=== PATIENT | male | born 1975 | race Caucasian/White ===

== ENCOUNTER 2016-10-31 18:36 | Emergency (ER) | payer OTHER ==
[~2016-10-31] VITALS: Ht 185.4 cm; Wt 90.7 kg
[~2016-10-31 18:36] MED LIST: CHILDREN'S ASPI81 M1 PO; DEPAKOTE ER500 MG PO; FLOMAX0.4 MG PO; KEPPRA 500 MG500 M1 PO; LYRICA 75 MG CA75 MG PO; PROZAC 10 MG CA10 MG PO; PROZAC 20 MG20 MG PO; REMERON15 MG PO; SEROQUEL 50 MG50 MG PO
[2016-10-31] MEDS ORDERED: CONSTULOSE10 GM/15 M PO (20:08)
[2016-10-31] MEDS ORDERED: DEPAKOTE SPRIN125 MG PO (20:08)
[2016-10-31] MEDS ORDERED: HALOPERIDO50 MG/1 M1 IM (20:09)
[2016-10-31] MEDS ORDERED: SEROQUEL200 MG PO (20:10)
[2016-10-31] MEDS ORDERED: ZYPREXA2.5 MG PO (20:11)
[2016-10-31] MEDS ORDERED: SEROQUEL 25 MG25 M1 PO (20:11)
[2016-10-31] MEDS ORDERED: HALOPERIDOL 2 MG2 MG PO (20:12)
[2016-10-31] MEDS ORDERED: VISTARIL 25 MG25 M1 PO (20:12)
[2016-10-31] MEDS ORDERED: TYLENOL325 MG PO (20:13)
[2016-10-31] MEDS ORDERED: IBUPROFEN 400400 M1 PO (20:13)
[2016-10-31] MEDS ORDERED: XANAX 0.5 MG0.5 MG PO (20:16)
== END 2016-10-31 22:55 | disposition home or self-care (01) ==
LOC: ER 18:36
DX: F91.8 Other conduct disorders (principal); F32.9 Major depressive disorder, single episode, unspecified; I10 Essential (primary) hypertension; Z88.0 Allergy status to penicillin

== ENCOUNTER 2017-01-30 14:05 | Emergency (ER) | payer OTHER ==
[~2017-01-30] VITALS: Ht 185.4 cm; Wt 104.3 kg
--- NOTE | ~2017-01-30 | EKG ---
[address] [address] ELECTROCARDIOGRAM REPORT Name: JONATHAN COLES Room #: [facility]#: [id number] Admission: 01/30/17 Attend Phys: Discharge: 01/30/17 Date of : 73 Report #: [id number] THIS REPORT FOR: //name// [facility] ED Test Date: 2017-01-30 Test Time: 14:14:34 Pat Name: JONATHAN COLES Department: Room: Gender: Parking Enforcer: Jimy VELA : 1975 Requested By: Ghulam Poole Order Number: [id number] MD: Kranthi Anaya Measurements Intervals [place] Rate: 93 P: 44 MA: 140 QRS: 17 QRSD: 91 T: 178 QT: 339 QTc: 422 Interpretive Statements Sinus rhythm Abnormal R-wave progression, early transition Borderline repolarization abnormality Compared to ECG 04/28/2016 16:51:18 Sinus tachycardia no longer present Atrial premature complex(es) no longer present ST (T wave) deviation less prominent Electronically Signed On 02-01-2017 7:37:12 CDT by Kranthi Anaya [email or web address] <ELECTRONICALLY SIGNED> By: Kranthi Anaya MD, [facility] 02/01/17 0737 1414 1414 Kranthi Anaya MD, [facility] /EPI
[~2017-01-30 14:05] MED LIST changes: +CONSTULOSE10 GM/15 M PO; +DEPAKOTE SPRIN125 MG PO; +HALOPERIDO50 MG/1 M1 IM; +HALOPERIDOL 2 MG2 MG PO; +IBUPROFEN 400400 M1 PO; +SEROQUEL 25 MG25 M1 PO; +SEROQUEL200 MG PO; +TYLENOL325 MG PO; +VISTARIL 25 MG25 M1 PO; +XANAX 0.5 MG0.5 MG PO; +ZYPREXA2.5 MG PO
== END 2017-01-30 17:17 ==
LOC: ER 14:05
DX: R45.1 Restlessness and agitation (principal); J80 Acute respiratory distress syndrome; G40.909 Epilepsy, unspecified, not intractable, without status epilepticus; F32.9 Major depressive disorder, single episode, unspecified; E87.1 Hypo-osmolality and hyponatremia; I10 Essential (primary) hypertension; G47.00 Insomnia, unspecified; Z88.0 Allergy status to penicillin

== ENCOUNTER 2017-04-30 19:03 | Inpatient (IN) | payer OTHER ==
[~2017-04-30] VITALS: Ht 185.4 cm; Wt 99.1 kg
[2017-04-30 19:04] VITALS: BP 131/83
[2017-04-30] MEDS ORDERED: HALOPERIDO100 MG/11 IM (19:21)
[2017-04-30] MEDS ORDERED: LEVOTHYROXIN0.025 MG PO (19:21)
[2017-04-30] MEDS ORDERED: ALEVE220 MG PO (19:23)
[2017-04-30] MEDS ORDERED: QUETIAPINE FUM150 MG PO (19:24)
[2017-04-30] MEDS ORDERED: SEROQUEL 50 MG50 MG PO (19:25)
[2017-04-30 20:17] LABS: ABSOLUTE NEUTROPHILS 2.5 thou/uL (1.4-8.2); BASOPHILS 0.5 % (0.0-2.0); EOSINOPHILS 0.8 % (0.0-3.0); HEMATOCRIT 38.9 % (42.0-52.0); LYMPHOCYTES 23.8 % (24.0-44.0); MCHC 33.4 g/dL (28.0-37.0); MCV 92.6 fL (80.0-100.0); MONOCYTES 7.2 % (1.0-8.0); PLATELET COUNT 132 thou/uL (150-400); POLYS 67.7 % (36.0-66.0); RDW 13.3 % (10.5-14.5); WBC 3.8 thou/uL (4.0-11.0)
[2017-04-30 20:19] LABS: MANUAL DIFF NO
[2017-04-30 21:17] LABS: URINE BILIRUBIN NEGATIVE (Negative); URINE BLOOD NEGATIVE (Negative); URINE COLOR YELLOW; URINE GLUCOSE-RANDOM* TRACE (Negative); URINE KETONES TRACE (Negative); URINE LEUKOCYTES-REFLEX NEGATIVE (Negative); URINE PROTEIN (DIPSTICK) NEGATIVE (Negative); URINE SPECIFIC GRAVITY 1.025 (1.003-1.035); URINE UROBILINOGEN 0.2 E.U./dl (0.2-1.0)
[2017-04-30 21:21] LABS: CALCIUM 8.6 mg/dL (8.5-10.1); CREATININE 0.8 mg/dL (0.7-1.3); POTASSIUM 3.8 mmol/L (3.5-5.1)
[2017-05-01 00:25] VITALS: BP 121/87
[2017-05-01 00:28] VITALS: BP 132/90
[2017-05-01 03:30] VITALS: BP 142/91
[2017-05-01 07:10] VITALS: BP 133/86
[2017-05-01 07:21] LABS: HEMATOCRIT 41.6 % (42.0-52.0); HEMOGLOBIN 13.9 gm/dL (14.0-18.0); MCH 30.8 pg (26.0-34.0); MCHC 33.3 g/dL (28.0-37.0); MCV 92.4 fL (80.0-100.0); RBC 4.5 mil/uL (4.50-6.00); RDW 13.5 % (10.5-14.5); WBC 6.6 thou/uL (4.0-11.0)
[2017-05-01 08:32] LABS: CALCIUM 8.7 mg/dL (8.5-10.1); CREATININE 0.9 mg/dL (0.7-1.3); POTASSIUM 3.4 mmol/L (3.5-5.1)
[2017-05-01 15:59] VITALS: BP 121/86
[2017-05-01 20:00] VITALS: BP 115/80
[2017-05-02 04:00] VITALS: BP 130/87
[2017-05-02 07:23] VITALS: BP 132/95
== END 2017-05-02 13:23 | DRG 93 ==
LOC: ER 19:03 → EROBS 22:17 → 3N 22:17
PROVIDERS: Emergency Medicine; Nurse Practitioner Family
DX: G92 Toxic encephalopathy (principal); G40.909 Epilepsy, unspecified, not intractable, without status epilepticus; T43.505A Adverse effect of unspecified antipsychotics and neuroleptics, initial encounter; I10 Essential (primary) hypertension; F32.9 Major depressive disorder, single episode, unspecified; Y92.89 Other specified places as the place of occurrence of the external cause; Z88.0 Allergy status to penicillin; Z79.899 Other long term (current) drug therapy
CPT/HCPCS: 10096